=== PATIENT | male | born 2000 | race Caucasian/White ===

== ENCOUNTER 2024-12-02 17:08 | Emergency (ER) | payer BC, SELFPAY ==
[2024-12-02 17:19] VITALS: BP 143/73; PULSE 67; RESP 16; TEMP 35.9; O2SAT 100
--- NOTE | 2024-12-02 17:27 | ED_ITS ---
HPI - Skin/Abscess/Foreign Bdy General Chief complaint: Skin/Abscess/Foreign Body Stated complaint: Tick Bite Time Seen by Provider: 12/02/24 17:24 Source: patient and RN notes reviewed Mode of arrival: ambulatory Limitations: no limitations History of Present Illness HPI narrative: Patient presents today complaining of a tick bite to the right anteromedial ankle that was sustained 4-5 days ago while in the [place]. States the tick was imbedded in this can likely only overnight before removed. The last several days the area had become red, swollen, and had some pus drainage. Prior to exam, patient looked at the area and it has significantly improved. Patient denies any systemic symptoms such as headache, fever, nausea vomiting, abdominal pain. Related Data Home Medications ?Medication ?Instructions ?Recorded ?Confirmed ?Last Taken ?Type No Home Medications 12/02/24 12/02/24 Unknown History Allergies Allergy/AdvReac Type Severity Reaction Status Date / Time No Known Allergies Allergy Verified 12/02/24 17:24 PMFSH Comments At time of signature, I have reviewed and agree with nursing past medical, surgical, social and family history unless otherwise noted. Please see nursing chart for further information. There is no relevant family history pertinent to the presenting complaint Exam Narrative: GENERAL: Well-appearing, well-nourished, and in no acute distress. HEAD: Normocephalic, atraumatic. EYES: EOMI. No redness or drainage. Conjunctivae normal. ENT: Mucous membranes pink and moist. NECK: Normal AROM. CHEST: No respiratory distress. EXTREMITIES: Normal range of motion. No edema. SKIN: Warm, dry. Capillary refill normal. Normal skin turgor. Right ankle: Almost fully healed insect bite to the right anteromedial ankle with scant healing pinkness around the puncture site. Nontender. No induration or drainage noted. NEURO: No focal deficits. Alert and oriented x3. Gait steady. PSYCH: Normal affect. No signs of depression or anxiety. Course Course Level of Care: Express Care Visit Vital Signs Vital signs: Vital Signs Temperature 96.7 F L 12/02/24 17:19 Pulse Rate 67 12/02/24 17:19 Respiratory Rate 16 12/02/24 17:19 Blood Pressure 143/73 H 12/02/24 17:19 Pulse Oximetry 100 12/02/24 17:19 Temperature 96.7 F L 12/02/24 17:19 Pulse Rate 67 12/02/24 17:19 Respiratory Rate 16 12/02/24 17:19 Blood Pressure 143/73 H 12/02/24 17:19 Pulse Oximetry 100 12/02/24 17:19 Reviewed MDM - Skin/Abscess/Foreign Bdy MDM Narrative Medical decision making narrative: 24-year-old male patient presents today after a tick bite 4-5 days ago that had had surrounding redness and drainage. It has significantly improved since onset. Exam shows almost healed insect bite. No systemic symptoms reported. No treatment indicated at this time. Vital signs stable. Differential Diagnosis Differential diagnosis: Likely abscess of skin or subcutaneous tissue, cellulitis, insect bites, impetigo and other (Tick bite) Critical Care Time Critical Care Time Critical Care Time: No Discharge Plan Discharge Clinical Impression: Tick bite Patient Disposition: Home Condition: Stable Instructions: Tick Bite (ED) Additional Instructions: Your tick bite is almost fully healed. Please follow-up with your PCP with any additional concerns. Your blood pressure was elevated above 120/80 today at Urgent Care. This puts you above the threshold for follow up. Please schedule a followup visit with your personal physician as soon as possible, for further evaluation and treatment. Even blood pressure exceeding 120/80 may indicate pre-hypertension. Patient Language: [place] Prescriptions: No Action No Home Medications Follow-up/Referrals: PHYSICIAN,TRANSMISSION DESIGN ENGINEER [Primary Care Provider] - Time of Disposition: 17:33
== END 2024-12-02 17:35 | disposition home or self-care (01) ==
PROVIDERS: Emergency Provider Nurse Practitioner
DX: S90.561A Insect bite (nonvenomous), right ankle, initial encounter (principal); W57.XXXA Bitten or stung by nonvenomous insect and other nonvenomous arthropods, initial encounter
CPT/HCPCS: 99202; G0463